=== PATIENT | male | born 1950 | race Caucasian/White ===

== ENCOUNTER 2016-04-24 20:03 | Observation (INO) | payer BC ==
[~2016-04-24] VITALS: Ht 184.2 cm; Wt 107.0 kg
[2016-04-24 21:03] LABS: HEMATOCRIT 47.1 % (38.0-50.0); MCH 30.9 PG (29.0-34.0); MCHC 35.5 G/DL (30.0-36.0); MCV 87.2 FL (86-99); MEAN PLAT.VOLUME 10.2 uM^3 (9.0-12.4); PLATELET COUNT 269 K/uL (156-360); RBC DIS.WIDTH-CV 12.6 % (11.8-14.6); RBC DIS.WIDTH-SD 39.8 % (39-53); WHITE BLOOD COUNT 6.5 K/uL (4.1-10.2)
[2016-04-24 21:14] LABS: CHLORIDE 107 mEq/L (99-109); POTASSIUM 4.1 mEq/L (3.7-5.4); SODIUM 143 mEq/L (136-147)
[2016-04-24 21:15] LABS: GLUCOSE 77 mg/dL (70-99)
[2016-04-24 21:17] LABS: ANION GAP 10 MEQ/L (2-14)
[2016-04-24 21:19] LABS: GFR ESTIMATE (CALCULATED) > 59 mL/min/
[2016-04-24 21:20] LABS: UREA NITROGEN (BUN) 17 mg/dL (9-23)
[2016-04-24 21:25] LABS: TROP-I INTERPRETATION NEGATIVE; TROPONIN-I < 0.01 ng/mL (0.0-0.30)
[2016-04-24] MEDS ORDERED: VALSARTAN160 MG PO (22:21)
[2016-04-24] MEDS ORDERED: GLUCOSAMINE CH1 EAC7 PO (22:21)
[2016-04-24] MEDS ORDERED: FISH OIL300 MG PO (22:22)
[2016-04-24] MEDS ORDERED: LO-DOSE ASPIRIN81 M2 PO (22:22)
[2016-04-24] MEDS ORDERED: ONE-A-DAY ESSE1 EAC1 PO (22:22)
[2016-04-25 00:29] VITALS: BP 142/87
[2016-04-25 00:41] LABS: TOTAL BILIRUBIN 0.3 mg/dL (0.0-1.0)
[2016-04-25 00:42] LABS: ALKALINE PHOSPHATASE 79 IU/L (3-129)
[2016-04-25 00:44] LABS: DIRECT BILIRUBIN 0.1 mg/dL (0.0-0.3)
[2016-04-25 00:46] LABS: LIPASE 45 U/L (1.0-51.0)
[2016-04-25 04:24] VITALS: BP 149/80
[2016-04-25 07:41] VITALS: BP 133/76
[2016-04-25 09:35] LABS: TROP-I INTERPRETATION NEGATIVE; TROPONIN-I < 0.01 ng/mL (0.0-0.30)
[2016-04-25 09:48] VITALS: BP 187/74
[2016-04-25] MEDS ORDERED: PROTONIX40 MG PO (10:56)
[2016-04-25] MEDS ORDERED: NITROSTAT0.4 MG SL (10:56)
[2016-04-25 10:57] VITALS: BP 111/76
== END 2016-04-25 12:37 | disposition home or self-care (01) ==
LOC: EME 20:03 → EDOF 23:18 → 5WEST 23:18 → EDOF 23:18 → 5WEST 23:35
PROVIDERS: Hospitalist
DX: R07.9 Chest pain, unspecified (principal); R94.31 Abnormal electrocardiogram [ECG] [EKG]; I10 Essential (primary) hypertension; R42 Dizziness and giddiness; M19.90 Unspecified osteoarthritis, unspecified site; Z79.82 Long term (current) use of aspirin; Z82.5 Family history of asthma and other chronic lower respiratory diseases; Z82.49 Family history of ischemic heart disease and other diseases of the circulatory system
CPT/HCPCS: 71020; 80048; 80076; 83690; 84484; 85027; 93005; 99281; 99285; G0378